=== PATIENT | male | born 1945 | race Caucasian/White ===

== ENCOUNTER 2021-03-22 08:14 | Outpatient (CLI) | payer MEDICARE, OTHER, SELFPAY ==
[2021-03-22 08:15] VITALS: BP 145/89; PULSE 90; RESP 18; TEMP 36.4; O2SAT 99
[2021-03-22 08:20] VITALS: BMI 30.5
[2021-03-22 09:07] VITALS: BP 126/79; PULSE 95; RESP 18; TEMP 36.4; O2SAT 96
[2021-03-22 10:08] VITALS: BP 155/87; PULSE 86; RESP 17; TEMP 36.4; O2SAT 99
== END 2021-03-22 08:15 | disposition home or self-care (01) ==
LOC: OPS 08:15
PROVIDERS: PCP Student in an Organized Health Care Education/Training Program; Visit Provider Nurse Practitioner Family
DX: U07.1 COVID-19 (principal)
CPT/HCPCS: 96365

== ENCOUNTER → 2022-04-06 10:40 | Outpatient (BNVA) | payer MEDICARE, OTHER, SELFPAY | PROVIDERS: PCP Student in an Organized Health Care Education/Training Program; Referring Provider Emergency Medicine; Visit Provider Nurse Practitioner Family | DX: S82.892A Other fracture of left lower leg, initial encounter for closed fracture (principal); X58.XXXA Exposure to other specified factors, initial encounter | CPT/HCPCS: 99214 ==

== ENCOUNTER → 2022-04-13 09:54 | Outpatient (BNVA) | payer MEDICARE, OTHER, SELFPAY | PROVIDERS: PCP Student in an Organized Health Care Education/Training Program; Visit Provider Nurse Practitioner Family | DX: S82.892D Other fracture of left lower leg, subsequent encounter for closed fracture with routine healing (principal); X58.XXXD Exposure to other specified factors, subsequent encounter | CPT/HCPCS: 73610; 99214 ==

== ENCOUNTER 2022-04-13 14:29 | Outpatient (CLI) | payer MEDICARE, OTHER, SELFPAY | END 2022-04-13 14:30 | disposition home or self-care (01) | LOC: SPT 14:31 | PROVIDERS: PCP Student in an Organized Health Care Education/Training Program; Visit Provider Nurse Practitioner Family | DX: Z46.89 Encounter for fitting and adjustment of other specified devices (principal); S82.892D Other fracture of left lower leg, subsequent encounter for closed fracture with routine healing; X58.XXXD Exposure to other specified factors, subsequent encounter | CPT/HCPCS: 97760; L4361 ==

== ENCOUNTER → 2022-05-18 09:47 | Outpatient (BNVA) | payer MEDICARE, OTHER, SELFPAY | PROVIDERS: PCP Student in an Organized Health Care Education/Training Program; Visit Provider Nurse Practitioner Family | DX: S82.435D Nondisplaced oblique fracture of shaft of left fibula, subsequent encounter for closed fracture with routine healing (principal); X58.XXXD Exposure to other specified factors, subsequent encounter | CPT/HCPCS: 73610; 99213 ==